=== PATIENT | male | born 1985 | race Caucasian/White ===

== ENCOUNTER 2019-06-03 08:59 | Emergency (ER) | payer OTHER ==
[~2019-06-03] VITALS: Ht 177.8 cm; Wt 79.4 kg
== END 2019-06-03 10:55 | disposition home or self-care (01) ==
LOC: ER 08:59
DX: S80.01XA Contusion of right knee, initial encounter (principal); W18.39XA Other fall on same level, initial encounter; Y93.89 Activity, other specified; Y92.89 Other specified places as the place of occurrence of the external cause; Y99.8 Other external cause status